=== PATIENT | female | born 1985 | race Caucasian/White ===

== ENCOUNTER → 2016-10-16 | Outpatient (CLI) | payer MEDICAID | LOC: FIMAGING 08:02 | PROVIDERS: ATTEND Obstetrics & Gynecology | DX: O35.8XX0 Maternal care for other (suspected) fetal abnormality and damage, not applicable or unspecified (principal); Z3A.24 24 weeks gestation of pregnancy ==

== ENCOUNTER → 2016-11-28 | Outpatient (CLI) | payer MEDICAID | LOC: FIMAGING 09:18 | PROVIDERS: ATTEND Obstetrics & Gynecology | DX: O36.8930 Maternal care for other specified fetal problems, third trimester, not applicable or unspecified (principal); O32.1XX0 Maternal care for breech presentation, not applicable or unspecified; Z3A.30 30 weeks gestation of pregnancy ==